=== PATIENT | female | born 1940 | race Caucasian/White ===

== ENCOUNTER 2020-12-25 10:31 | Outpatient (CLI) | payer MEDICARE, MEDICAID, OTHER | END 2020-12-25 10:32 | disposition home or self-care (01) | LOC: CSHCT 10:31 | PROVIDERS: ATTEND Urology | DX: R31.29 Other microscopic hematuria (principal); Q64.8 Other specified congenital malformations of urinary system; N32.9 Bladder disorder, unspecified; N83.8 Other noninflammatory disorders of ovary, fallopian tube and broad ligament | CPT/HCPCS: 74178; 82565 ==

== ENCOUNTER 2021-03-17 07:57 | Inpatient (IN) | payer MEDICARE, MEDICAID ==
[2021-03-17] MEDS ORDERED: Atropine Sulfate 1 mg/10 ml Syringe ONE (08:34)
[2021-03-17 08:56] LABS: #Basophils 0.1 10x3/uL (0.0-0.2); #Eosinphils 0.2 10x3/uL (0.0-0.5); #Monocytes 0.7 10x3/uL (0.0-1.1); #Neutrophils 6.8 10x3/uL (1.5-8.4); %Basophils 0.6 % (0.0-2.0); %Eosinophils 2.4 % (0.0-6.0); %Monocytes 8.3 % (0.0-10.0); %Neutrophils 77.2 % (40.0-75.0); Hemoglobin 10.1 g/dL (12.0-15.5); Mean Corpuscular HGB CONC 31.8 g/dL (32.0-36.0); Mean Corpuscular Hemoglobin 30.5 pg (27.0-33.0); Mean Corpuscular Volume 96.1 fl (81.6-98.3); Mean Platelet Volume 11.9 fl (7.4-10.4); Platelet Count 151 10x3/uL (150-450); RBC Distribution Width 13.8 % (11.5-14.5); Red Blood Cell (RBC) Count 3.31 10x6/uL (3.90-5.03); White Blood Cell (WBC) Count 8.8 10x3/uL (3.5-10.5)
[2021-03-17 09:16] LABS: ALT (SGPT) 23 U/L (8-55); AST (SGOT) 16 U/L (5-34); Albumin 3.9 g/dL (3.4-4.8); Alkaline Phosphatase 67 U/L (40-110); Anion Gap 13 mmol/L (10-20); BUN (Urea Nitrogen) 53 mg/dL (9.8-20.1); Bilirubin, Total 0.5 mg/dL (0.2-1.2); Calc. Creatinine Clearance 0 mL/min (70-130); Calcium 9.1 mg/dL (7.8-10.44); Carbon Dioxide 23 mmol/L (23-31); Chloride 109 mmol/L (98-107); Globulin 2.7 g/dL (2.4-3.5); Glucose 162 mg/dL (83-110); Potassium 5.4 mmol/L (3.5-5.1); Protein, Total 6.6 g/dL (5.8-8.1); Sodium 140 mmol/L (136-145)
[2021-03-17 09:54] LABS: Bilirubin Neg (Negative); Blood, Urine 250 (Negative); Clarity Cloudy (Clear); Glucose, Urine (Dipstick) 100 mg/dL (Negative); Ketone, Urine Negative (Negative); Leukocyte 500 (Negative); Nitrite Negative (Negative); Protein, Urine (Dipstick) 100 mg/dl (Neg-Trace); Specific Gravity, Urine 1.015 (1.002-1.036); Urobilinogen Normal mg/dL (Less than 2)
[2021-03-17 10:06] LABS: RBC/HPF 21-50 HPF (0-3); WBC/HPF Greater Than 50 HPF (0-3)
[2021-03-17 10:08] LABS: Bacteria/HPF 1+ HPF (None Seen); Squamous Epithelial None Seen HPF (0-3)
[2021-03-17 10:09] LABS: Yeast-Hyphae Rare HPF (None Seen)
[2021-03-17] MEDS ORDERED: cefTRIAXone\\ROCEPHIN 1 GM VIAL ONE (10:25)
[2021-03-17] MEDS ORDERED: Nitrofurantoin Macrocrystal 50 MG CAP PO SCH (10:30)
[2021-03-17 11:42] LABS: Potassium 5.1 mmol/L (3.5-5.1)
[2021-03-17 11:56] LABS: Troponin I 0.017 ng/mL (< 0.028)
[2021-03-17] MEDS ORDERED: Senokot S 8.6-50 MG TAB PO PRN (13:02)
[2021-03-17 13:50] VITALS: BMI 30.7
[2021-03-17] MEDS ORDERED: FLU VACC QS2021-22(65YR UP)/PF 240 MCG/0.7 ML SYRINGE IM ONE (14:00)
[2021-03-17 16:48] LABS: Glucose POC Confirmation 183 mg/dl (83-110)
[2021-03-17 20:44] LABS: Glucose POC Confirmation 206 mg/dl (83-110)
[2021-03-17] MEDS ORDERED: glipiZIDE 5 MG TAB PO SCH (21:00)
[2021-03-17] MEDS: Pramipexole Di-HCl 1 MG TAB PO SCH (22:02)
[2021-03-17] MEDS: Famotidine 20 MG TAB PO SCH (22:02)
[2021-03-17] MEDS: Carvedilol 6.25 MG TAB PO SCH (22:02)
[2021-03-18 05:23] LABS: Glucose POC Confirmation 141 mg/dl (83-110)
[2021-03-18 05:27] LABS: Anion Gap 10 mmol/L (10-20); BUN (Urea Nitrogen) 32 mg/dL (9.8-20.1); Calc. Creatinine Clearance 73 mL/min (70-130); Calcium 8.7 mg/dL (7.8-10.44); Carbon Dioxide 24 mmol/L (23-31); Chloride 111 mmol/L (98-107); Glucose 140 mg/dL (83-110); Potassium 4.3 mmol/L (3.5-5.1); Sodium 141 mmol/L (136-145)
[2021-03-18 05:32] LABS: #Eosinphils 0.1 10x3/uL (0.0-0.5); #Monocytes 0.8 10x3/uL (0.0-1.1); #Neutrophils 4.2 10x3/uL (1.5-8.4); %Basophils 0.6 % (0.0-2.0); %Eosinophils 2.1 % (0.0-6.0); %Lymphocytes 21.4 % (18.0-47.0); %Monocytes 11.8 % (0.0-10.0); %Neutrophils 63.8 % (40.0-75.0); Hemoglobin 9.9 g/dL (12.0-15.5); Mean Corpuscular Hemoglobin 30.6 pg (27.0-33.0); Mean Corpuscular Volume 95.4 fl (81.6-98.3); Mean Platelet Volume 11.8 fl (7.4-10.4); Platelet Count 154 10x3/uL (150-450); RBC Distribution Width 13.6 % (11.5-14.5); Red Blood Cell (RBC) Count 3.24 10x6/uL (3.90-5.03); White Blood Cell (WBC) Count 6.5 10x3/uL (3.5-10.5)
[2021-03-18] MEDS ORDERED: Dextrose 5% in Water 1,000 ML IV PRN (07:40)
[2021-03-18] MEDS ORDERED: Dextrose 50% Abboject 50 ML SYRINGE SLOW IVP PRN (07:40)
[2021-03-18] MEDS ORDERED: HumaLOG 300 UNITS/3 ML VIAL SC PRN (07:40)
[2021-03-18] MEDS: Enoxaparin Sodium 40 MG/0.4 ML SYRINGE SC SCH (08:40)
[2021-03-18] MEDS: Aspirin Chewable 81 MG TAB PO SCH (08:40)
[2021-03-18] MEDS: Losartan 25 MG TAB PO SCH (08:41)
[2021-03-18] MEDS: Oxybutynin ER 5 MG TAB PO SCH (08:41)
[2021-03-18] MEDS: PARoxetine 20 MG TAB PO SCH (08:41)
[2021-03-18] MEDS: Doxycycline 100 MG CAP PO SCH (08:41)
[2021-03-18] MEDS: Clopidogrel Bisulfate 75 MG TAB PO SCH (08:41)
[2021-03-18] MEDS: Carvedilol 6.25 MG TAB PO SCH ×2 (08:41→21:09)
[2021-03-18] MEDS: Famotidine 20 MG TAB PO SCH (08:42)
[2021-03-18] MEDS ORDERED: Lantus 1000 UNITS/10 ML VIAL SC SCH ×2 (09:00→15:00)
[2021-03-18 14:08] LABS: SARS-CoV-2 PCR by NAA Not Detected (NotDetected)
[2021-03-18] MEDS: HumaLOG 300 UNITS/3 ML VIAL SC PRN ×3 (15:07→21:19)
[2021-03-18] MEDS: Atorvastatin Calcium 40 MG TAB PO SCH (21:09)
[2021-03-18] MEDS: Pramipexole Di-HCl 1 MG TAB PO SCH (21:10)
[2021-03-18] MEDS: Lantus 1000 UNITS/10 ML VIAL SC SCH (21:13)
[2021-03-19 04:51] LABS: Hemoglobin 9.4 g/dL (12.0-15.5); Mean Corpuscular Hemoglobin 30.5 pg (27.0-33.0); Mean Corpuscular Volume 95.5 fl (81.6-98.3); Mean Platelet Volume 11.5 fl (7.4-10.4); Platelet Count 154 10x3/uL (150-450); RBC Distribution Width 13.6 % (11.5-14.5); Red Blood Cell (RBC) Count 3.08 10x6/uL (3.90-5.03); White Blood Cell (WBC) Count 6.1 10x3/uL (3.5-10.5)
[2021-03-19 05:27] LABS: Anion Gap 10 mmol/L (10-20); BUN (Urea Nitrogen) 29 mg/dL (9.8-20.1); Calc. Creatinine Clearance 57 mL/min (70-130); Calcium 8.6 mg/dL (7.8-10.44); Carbon Dioxide 24 mmol/L (23-31); Chloride 109 mmol/L (98-107); Glucose 120 mg/dL (83-110); Potassium 4.1 mmol/L (3.5-5.1); Sodium 139 mmol/L (136-145)
[2021-03-19 06:14] LABS: MDiff Complete? YES
[2021-03-19 06:20] LABS: Eosinophils 4 % (0-10); Lymphocytes 24 % (21-51); Monocytes 12 % (0-10); Neutrophil 59 % (42-75)
[2021-03-19] MEDS: Doxycycline 100 MG CAP PO SCH (09:43)
[2021-03-19] MEDS: Clopidogrel Bisulfate 75 MG TAB PO SCH (09:46)
[2021-03-19] MEDS: PARoxetine 20 MG TAB PO SCH (09:46)
[2021-03-19] MEDS: Oxybutynin ER 5 MG TAB PO SCH (09:47)
[2021-03-19] MEDS: Carvedilol 6.25 MG TAB PO SCH ×2 (09:47→21:37)
[2021-03-19] MEDS: Lantus 1000 UNITS/10 ML VIAL SC SCH ×2 (09:47→21:38)
[2021-03-19] MEDS: Enoxaparin Sodium 40 MG/0.4 ML SYRINGE SC SCH (09:47)
[2021-03-19] MEDS: Aspirin Chewable 81 MG TAB PO SCH (09:47)
[2021-03-19] MEDS: Losartan 25 MG TAB PO SCH (09:47)
[2021-03-19] MEDS: HumaLOG 300 UNITS/3 ML VIAL SC PRN ×2 (17:04→21:39)
[2021-03-19] MEDS: Pramipexole Di-HCl 1 MG TAB PO SCH (21:37)
[2021-03-19] MEDS: Atorvastatin Calcium 40 MG TAB PO SCH (21:37)
[2021-03-19] MEDS: Nitrofurantoin Monohyd/M-Cryst 100 MG CAP PO SCH (22:24)
[2021-03-20 05:25] LABS: #Eosinphils 0.2 10x3/uL (0.0-0.5); #Monocytes 0.9 10x3/uL (0.0-1.1); %Basophils 0.6 % (0.0-2.0); %Eosinophils 3.2 % (0.0-6.0); %Lymphocytes 20.5 % (18.0-47.0); %Monocytes 13.5 % (0.0-10.0); %Neutrophils 61.9 % (40.0-75.0); Hemoglobin 10.3 g/dL (12.0-15.5); Mean Corpuscular HGB CONC 32.1 g/dL (32.0-36.0); Mean Corpuscular Hemoglobin 30.2 pg (27.0-33.0); Mean Corpuscular Volume 94.1 fl (81.6-98.3); Mean Platelet Volume 11.4 fl (7.4-10.4); Platelet Count 173 10x3/uL (150-450); RBC Distribution Width 13.5 % (11.5-14.5); Red Blood Cell (RBC) Count 3.41 10x6/uL (3.90-5.03); White Blood Cell (WBC) Count 6.5 10x3/uL (3.5-10.5)
[2021-03-20 05:40] LABS: Anion Gap 13 mmol/L (10-20); BUN (Urea Nitrogen) 22 mg/dL (9.8-20.1); Calc. Creatinine Clearance 71 mL/min (70-130); Calcium 8.8 mg/dL (7.8-10.44); Carbon Dioxide 23 mmol/L (23-31); Chloride 110 mmol/L (98-107); Glucose 163 mg/dL (83-110); Sodium 142 mmol/L (136-145)
[2021-03-20 09:09] VITALS: TEMP 98.8
[2021-03-20] MEDS: Clopidogrel Bisulfate 75 MG TAB PO SCH (09:59)
[2021-03-20] MEDS: Aspirin Chewable 81 MG TAB PO SCH (09:59)
[2021-03-20] MEDS: Enoxaparin Sodium 40 MG/0.4 ML SYRINGE SC SCH (09:59)
[2021-03-20] MEDS: Carvedilol 6.25 MG TAB PO SCH (09:59)
[2021-03-20] MEDS: PARoxetine 20 MG TAB PO SCH (09:59)
[2021-03-20] MEDS: Nitrofurantoin Monohyd/M-Cryst 100 MG CAP PO SCH (10:00)
[2021-03-20] MEDS: Losartan 25 MG TAB PO SCH (10:00)
[2021-03-20] MEDS: Oxybutynin ER 5 MG TAB PO SCH (10:08)
[2021-03-20 10:14] VITALS: BP 154/67
[2021-03-20] MEDS: Lantus 1000 UNITS/10 ML VIAL SC SCH (10:14)
== END 2021-03-20 10:46 | disposition home or self-care (01) | DRG 638 ==
LOC: CSHERS 07:57 → CSHTELE 11:26
PROVIDERS: ADMIT Hospitalist; ATTEND Hospitalist
DX: E11.649 Type 2 diabetes mellitus with hypoglycemia without coma (principal); N39.0 Urinary tract infection, site not specified; I10 Essential (primary) hypertension; G25.0 Essential tremor; G47.30 Sleep apnea, unspecified; F32.A Depression, unspecified; E11.42 Type 2 diabetes mellitus with diabetic polyneuropathy; R00.1 Bradycardia, unspecified; Z20.822 Contact with and (suspected) exposure to COVID-19; I25.2 Old myocardial infarction; Z79.82 Long term (current) use of aspirin; Z79.4 Long term (current) use of insulin; Z79.899 Other long term (current) drug therapy; Z95.5 Presence of coronary angioplasty implant and graft; Z98.2 Presence of cerebrospinal fluid drainage device
CPT/HCPCS: 36415; 36416; 70450; 75809; 80048; 80053; 81003; 81015; 83605; 84484; 85025; 93005; J0461; J0696; J1610; J1650; J1815; U0003; U0005

== ENCOUNTER 2021-08-31 18:56 | Inpatient (IN) | payer MEDICARE, MEDICAID ==
[2021-08-31] MEDS ORDERED: Ondansetron PF 4 MG/2 ML Vial ONE (19:26)
[2021-08-31 19:40] LABS: #Basophils 0.1 10x3/uL (0.0-0.2); #Monocytes 0.6 10x3/uL (0.0-1.1); #Neutrophils 10.3 10x3/uL (1.5-8.4); %Basophils 0.4 % (0.0-2.0); %Eosinophils 0.2 % (0.0-6.0); %Lymphocytes 10.2 % (18.0-47.0); %Neutrophils 83.8 % (40.0-75.0); Hemoglobin 12.2 g/dL (12.0-15.5); Mean Corpuscular HGB CONC 33.5 g/dL (32.0-36.0); Mean Corpuscular Hemoglobin 28.9 pg (27.0-33.0); Mean Corpuscular Volume 86.3 fl (81.6-98.3); Mean Platelet Volume 12.4 fl (7.4-10.4); Platelet Count 215 10x3/uL (150-450); RBC Distribution Width 14.3 % (11.5-14.5); Red Blood Cell (RBC) Count 4.22 10x6/uL (3.90-5.03); White Blood Cell (WBC) Count 12.3 10x3/uL (3.5-10.5)
[2021-08-31] MEDS ORDERED: Morphine 4 MG/ML VIAL ONE (19:44)
[2021-08-31 19:54] LABS: ALT (SGPT) 21 U/L (8-55); AST (SGOT) 15 U/L (5-34); Albumin 4.2 g/dL (3.4-4.8); Alkaline Phosphatase 78 U/L (40-110); Anion Gap 15 mmol/L (10-20); BUN (Urea Nitrogen) 34 mg/dL (9.8-20.1); Bilirubin, Total 0.7 mg/dL (0.2-1.2); Calc. Creatinine Clearance 0 mL/min (70-130); Carbon Dioxide 23 mmol/L (23-31); Chloride 104 mmol/L (98-107); Globulin 2.9 g/dL (2.4-3.5); Glucose 177 mg/dL (83-110); Potassium 3.6 mmol/L (3.5-5.1); Protein, Total 7.1 g/dL (5.8-8.1); Sodium 138 mmol/L (136-145)
[2021-09-01] MEDS ORDERED: Ondansetron PF 4 MG/2 ML Vial ONE (00:47)
[2021-09-01] MEDS ORDERED: Aspirin Chewable 81 MG TAB ONE (00:47)
[2021-09-01 01:54] VITALS: BMI 33.1
[2021-09-01] MEDS ORDERED: Nitroglycerin 0.4 MG TAB (25 Tab Bottle) SL PRN (02:52)
[2021-09-01] MEDS ORDERED: Dextrose 50% Abboject 50 ML SYRINGE SLOW IVP PRN (03:11)
[2021-09-01] MEDS ORDERED: Dextrose 5% in Water 1,000 ML IV PRN (03:11)
[2021-09-01] MEDS: Nitroglycerin 2% Ointment 1 INCH/1 GM Packet TOP SCH ×3 (03:30→19:47)
[2021-09-01 03:48] LABS: #Monocytes 0.4 10x3/uL (0.0-1.1); #Neutrophils 12.5 10x3/uL (1.5-8.4); %Basophils 0.1 % (0.0-2.0); %Lymphocytes 6.4 % (18.0-47.0); %Monocytes 2.7 % (0.0-10.0); %Neutrophils 90.4 % (40.0-75.0); Hemoglobin 12.5 g/dL (12.0-15.5); Mean Corpuscular HGB CONC 33.1 g/dL (32.0-36.0); Mean Corpuscular Hemoglobin 28.3 pg (27.0-33.0); Mean Corpuscular Volume 85.7 fl (81.6-98.3); Mean Platelet Volume 12.3 fl (7.4-10.4); Platelet Count 208 10x3/uL (150-450); RBC Distribution Width 14.4 % (11.5-14.5); Red Blood Cell (RBC) Count 4.41 10x6/uL (3.90-5.03); White Blood Cell (WBC) Count 13.8 10x3/uL (3.5-10.5)
[2021-09-01 03:54] LABS: Anion Gap 17 mmol/L (10-20); BUN (Urea Nitrogen) 28 mg/dL (9.8-20.1); Calc. Creatinine Clearance 84 mL/min (70-130); Carbon Dioxide 24 mmol/L (23-31); Cardiac Risk 2.6 (Less than 4.5); Chloride 101 mmol/L (98-107); Cholesterol 108 mg/dl (< 200 Desired); Glucose 203 mg/dL (83-110); HDL Cholesterol 41 mg/dL (>60 Neg Risk); LDL Cholesterol, Calculated 53 mg/dL; Magnesium 2.2 mg/dL (1.6-2.6); Potassium 3.5 mmol/L (3.5-5.1); Sodium 138 mmol/L (136-145); Triglycerides 71 mg/dL (Less than 150)
[2021-09-01 04:02] LABS: Troponin I 0.011 ng/mL (< 0.028)
[2021-09-01 06:57] LABS: Troponin I 0.017 ng/mL (< 0.028)
[2021-09-01] MEDS ORDERED: NIFEdipine XL 60 MG TAB PO SCH (09:15)
[2021-09-01] MEDS: Aspirin Chewable 81 MG TAB PO SCH (09:35)
[2021-09-01] MEDS: Morphine 2 MG/ML VIAL SLOW IVP PRN ×2 (10:12→23:53)
[2021-09-01] MEDS: Enoxaparin Sodium 40 MG/0.4 ML SYRINGE SC SCH (11:09)
[2021-09-01] MEDS: Ondansetron PF 4 MG/2 ML Vial IVP PRN (11:39)
[2021-09-01 11:56] LABS: Hemoglobin A1c 11.3 % (4.0-6.0)
[2021-09-01 22:39] LABS: SARS-CoV-2 PCR by NAA Not Detected (NotDetected)
[2021-09-02] MEDS: Nitroglycerin 2% Ointment 1 INCH/1 GM Packet TOP SCH (05:30)
[2021-09-02] MEDS ORDERED: Losartan 25 MG TAB PO SCH (09:15)
[2021-09-02] MEDS: Enoxaparin Sodium 40 MG/0.4 ML SYRINGE SC SCH (13:12)
[2021-09-02] MEDS: Aspirin Chewable 81 MG TAB PO SCH (13:37)
[2021-09-02] MEDS: NIFEdipine XL 60 MG TAB PO SCH (13:37)
[2021-09-02] MEDS: cefTRIAXone\\ROCEPHIN 1 GM in Sodium Chloride 0.9% 100 ML IVPB SCH (15:45)
[2021-09-02] MEDS: Atorvastatin Calcium 40 MG TAB PO SCH (21:42)
[2021-09-03] MEDS: Acetaminophen 325 MG TAB PO PRN (04:05)
[2021-09-03] MEDS ORDERED: PROPOFOL 20 ML ONE (06:55)
[2021-09-03] MEDS ORDERED: Fentanyl 100 MCG/2 ML VIAL ONE ×2 (06:55→08:50)
[2021-09-03] MEDS ORDERED: EPINEPHrine 1 MG/ML AMP ONE (07:01)
[2021-09-03] MEDS ORDERED: Bupivacaine 0.25% HCL 30 ML VIAL ONE (07:01)
[2021-09-03] MEDS ORDERED: Lidocaine 1% PF 5 ML VIAL ONE (07:50)
[2021-09-03] MEDS ORDERED: Rocuronium Bromide 10 MG/ML (10ML VIAL) ONE (07:50)
[2021-09-03] MEDS ORDERED: Ondansetron PF 4 MG/2 ML Vial ONE (07:51)
[2021-09-03] MEDS ORDERED: ePHEDrine Sulfate 50 MG/10 ML VIAL ONE (07:53)
[2021-09-03] MEDS ORDERED: Ketorolac Tromethamine 30 MG/ML VIAL ONE (08:11)
[2021-09-03] MEDS ORDERED: Glycopyrrolate 0.2 MG/ML 5 ML SYRINGE ONE (08:13)
[2021-09-03] MEDS: Enoxaparin Sodium 40 MG/0.4 ML SYRINGE SC SCH (09:00)
[2021-09-03] MEDS: NIFEdipine XL 60 MG TAB PO SCH (09:15)
[2021-09-03] MEDS: Aspirin Chewable 81 MG TAB PO SCH (09:15)
[2021-09-03] MEDS: Losartan 25 MG TAB PO SCH (09:15)
[2021-09-03] MEDS: Ondansetron PF 4 MG/2 ML Vial IVP PRN (13:25)
[2021-09-03] MEDS: cefTRIAXone\\ROCEPHIN 1 GM in Sodium Chloride 0.9% 100 ML IVPB SCH (16:27)
[2021-09-03] MEDS: Atorvastatin Calcium 40 MG TAB PO SCH (21:58)
[2021-09-03] MEDS: HumaLOG 300 UNITS/3 ML VIAL SC PRN (22:35)
[2021-09-04] MEDS: HumaLOG 300 UNITS/3 ML VIAL SC PRN (06:25)
[2021-09-04] MEDS ORDERED: Clopidogrel Bisulfate 75 MG TAB PO SCH (09:00)
[2021-09-04] MEDS ORDERED: Polyethylene Glycol 3350 17 GM Packet PO SCH (10:00)
[2021-09-04] MEDS: Losartan 25 MG TAB PO SCH (10:16)
[2021-09-04] MEDS: Aspirin Chewable 81 MG TAB PO SCH (10:16)
[2021-09-04] MEDS: Acetaminophen 325 MG TAB PO PRN (10:16)
[2021-09-04] MEDS: Enoxaparin Sodium 40 MG/0.4 ML SYRINGE SC SCH (10:16)
[2021-09-04 13:03] VITALS: BP 109/49; TEMP 97.3
[2021-09-04] MEDS ORDERED: Carvedilol 3.125 MG TAB PO SCH (17:00)
[2021-09-05] MEDS ORDERED: Polyethylene Glycol 3350 17 GM Packet PO SCH (09:00)
== END 2021-09-04 15:40 | disposition home or self-care (01) | DRG 854 ==
LOC: CSHERS 18:56 → OBSVTOIN 09-01 01:24 → CSHTELE 09-01 01:24 → INTOOBSV 09-01 01:24 → UNDOADMOB 09-01 01:24 → OBSVTOIN 09-02 14:40 → CSHTELE 09-02 14:40
PROVIDERS: ADMIT Family Medicine; ATTEND Internal Medicine
PROC: 3E03329 Introduction of Other Anti-infective into Peripheral Vein, Percutaneous Approach (ICD-10-PCS; 2021-09-02)
PROC: 0FT44ZZ Resection of Gallbladder, Percutaneous Endoscopic Approach (ICD-10-PCS; principal; 2021-09-03)
DX: A41.9 Sepsis, unspecified organism (principal); K80.00 Calculus of gallbladder with acute cholecystitis without obstruction; I25.10 Atherosclerotic heart disease of native coronary artery without angina pectoris; R07.9 Chest pain, unspecified; I11.0 Hypertensive heart disease with heart failure; I50.9 Heart failure, unspecified; K82.8 Other specified diseases of gallbladder; E11.51 Type 2 diabetes mellitus with diabetic peripheral angiopathy without gangrene; E78.2 Mixed hyperlipidemia; K21.9 Gastro-esophageal reflux disease without esophagitis; Z20.822 Contact with and (suspected) exposure to COVID-19; Z98.891 History of uterine scar from previous surgery; I25.2 Old myocardial infarction; Z79.02 Long term (current) use of antithrombotics/antiplatelets; Z98.890 Other specified postprocedural states; Z72.89 Other problems related to lifestyle; Z79.82 Long term (current) use of aspirin; Z79.01 Long term (current) use of anticoagulants; Z79.899 Other long term (current) drug therapy; Z95.5 Presence of coronary angioplasty implant and graft; Z82.49 Family history of ischemic heart disease and other diseases of the circulatory system
CPT/HCPCS: 36416; 70450; 71045; 75809; 76705; 78227; 80048; 80053; 80061; 83036; 83690; 83735; 83880; 84484; 85025; 88304; 93005; 93010; 93306; 96374; 96375; 96376; A9537; C1713; G0378; J0171; J0696; J1650; J1815; J1885; J2270; J2405; J2704; J3010; J3490; S0020; U0003; U0005

== ENCOUNTER 2021-09-19 13:44 | Inpatient (IN) | payer MEDICARE, MEDICAID ==
[2021-09-19] MEDS ORDERED: Nitroglycerin 2% Ointment 1 INCH/1 GM Packet ONE (14:22)
[2021-09-19] MEDS ORDERED: Nitroglycerin 0.4 MG TAB 1 EACH ONE ×2 (14:22→15:25)
[2021-09-19] MEDS ORDERED: Furosemide 40 MG/4 ML VIAL ONE (14:22)
[2021-09-19 14:26] LABS: #Basophils 0.1 10x3/uL (0.0-0.2); #Eosinphils 0.2 10x3/uL (0.0-0.5); #Monocytes 0.6 10x3/uL (0.0-1.1); #Neutrophils 8.2 10x3/uL (1.5-8.4); %Basophils 0.5 % (0.0-2.0); %Eosinophils 1.6 % (0.0-6.0); %Lymphocytes 11.9 % (18.0-47.0); %Monocytes 5.6 % (0.0-10.0); Hemoglobin 12.8 g/dL (12.0-15.5); Mean Corpuscular Hemoglobin 28.8 pg (27.0-33.0); Mean Corpuscular Volume 84.7 fl (81.6-98.3); Mean Platelet Volume 12.2 fl (7.4-10.4); Platelet Count 262 10x3/uL (150-450); RBC Distribution Width 14.2 % (11.5-14.5); Red Blood Cell (RBC) Count 4.44 10x6/uL (3.90-5.03); White Blood Cell (WBC) Count 10.3 10x3/uL (3.5-10.5)
[2021-09-19 14:41] LABS: ALT (SGPT) 17 U/L (8-55); AST (SGOT) 17 U/L (5-34); Albumin 4.1 g/dL (3.4-4.8); Alkaline Phosphatase 90 U/L (40-110); Anion Gap 18 mmol/L (10-20); BUN (Urea Nitrogen) 18 mg/dL (9.8-20.1); Bilirubin, Total 0.6 mg/dL (0.2-1.2); Calc. Creatinine Clearance 0 mL/min (70-130); Calcium 9.6 mg/dL (7.8-10.44); Carbon Dioxide 22 mmol/L (23-31); Chloride 106 mmol/L (98-107); Globulin 2.7 g/dL (2.4-3.5); Glucose 143 mg/dL (83-110); Potassium 4.1 mmol/L (3.5-5.1); Protein, Total 6.8 g/dL (5.8-8.1); Sodium 142 mmol/L (136-145)
[2021-09-19] MEDS ORDERED: Iopamidol 370 76% 100 ML VIAL ONE (14:51)
[2021-09-19] MEDS ORDERED: Fentanyl 100 MCG/2 ML VIAL ONE (14:53)
[2021-09-19] MEDS ORDERED: Ondansetron PF 4 MG/2 ML Vial ONE (15:43)
[2021-09-19 16:57] VITALS: BMI 39.9
[2021-09-19] MEDS ORDERED: Ondansetron ODT 4 MG TAB PO PRN (17:50)
[2021-09-19] MEDS ORDERED: Acetaminophen 325 MG TAB PO PRN (17:50)
[2021-09-19] MEDS ORDERED: Ondansetron PF 4 MG/2 ML Vial IVP PRN (17:50)
[2021-09-19] MEDS ORDERED: Nitroglycerin 0.4 MG TAB (25 Tab Bottle) SL PRN (17:53)
[2021-09-19] MEDS ORDERED: Dextrose 5% in Water 1,000 ML IV PRN (17:54)
[2021-09-19] MEDS ORDERED: HumaLOG 300 UNITS/3 ML VIAL SC PRN ×2 (17:54)
[2021-09-19] MEDS ORDERED: Dextrose 50% Abboject 50 ML SYRINGE SLOW IVP PRN (17:54)
[2021-09-19] MEDS ORDERED: hydrALAZINE 20 MG/ML VIAL SLOW IVP PRN ×2 (17:56→19:31)
[2021-09-19] MEDS ORDERED: Pantoprazole 40 MG VIAL IVP SCH (18:00)
[2021-09-19] MEDS ORDERED: Electrolyte Replacement Protocol 1 EACH FS PRN (18:00)
[2021-09-19 18:15] LABS: Troponin I 0.025 ng/mL (< 0.028)
[2021-09-19] MEDS: Promethazine HCl 12.5 MG in Sodium Chloride 0.9% 50 ML IVPB PRN (18:39)
[2021-09-19] MEDS: Morphine 2 MG/ML VIAL SLOW IVP PRN ×2 (19:57→23:16)
[2021-09-19 20:17] LABS: Lactic Acid 1.2 mmol/L (0.5-2.2)
[2021-09-19 20:27] LABS: Troponin I 0.031 ng/mL (< 0.028)
[2021-09-19] MEDS: Nitroglycerin 2% Ointment 1 INCH/1 GM Packet TOP SCH (21:48)
[2021-09-19] MEDS ORDERED: Magnesium 2 GM/50 ML(in water) 2 GM in Premix Bag 1 BAG IVPB SCH (22:00)
[2021-09-19] MEDS: Sucralfate 1 GM TAB PO SCH (23:15)
[2021-09-19] MEDS: Mag-Al 1200 mg/1200 mg/30 ML UDCUP PO SCH (23:15)
[2021-09-20] MEDS: Morphine 2 MG/ML VIAL SLOW IVP PRN (00:13)
[2021-09-20] MEDS: Promethazine HCl 12.5 MG in Sodium Chloride 0.9% 50 ML IVPB PRN ×2 (00:19→12:02)
[2021-09-20] MEDS: Mag-Al 1200 mg/1200 mg/30 ML UDCUP PO SCH (00:34)
[2021-09-20] MEDS: Sucralfate 1 GM TAB PO SCH ×3 (00:34→20:19)
[2021-09-20 01:48] LABS: Bilirubin Neg (Negative); Blood, Urine 10 (Negative); Clarity Clear (Clear); Glucose, Urine (Dipstick) 100 mg/dL (Negative); Ketone, Urine 5 mg/dL (Negative); Leukocyte Negative (Negative); Nitrite Negative (Negative); Protein, Urine (Dipstick) 30 mg/dl (Neg-Trace); Urobilinogen Normal mg/dL (Less than 2)
[2021-09-20 02:03] LABS: Bacteria/HPF Rare-Few HPF (None Seen); RBC/HPF 0-3 HPF (0-3); Squamous Epithelial None Seen HPF (0-3)
[2021-09-20 02:04] LABS: Urine Culture Reflex Yes Yes
[2021-09-20 04:11] LABS: #Monocytes 0.9 10x3/uL (0.0-1.1); #Neutrophils 15.8 10x3/uL (1.5-8.4); %Basophils 0.2 % (0.0-2.0); %Lymphocytes 5.5 % (18.0-47.0); %Neutrophils 88.7 % (40.0-75.0); Hemoglobin 13.7 g/dL (12.0-15.5); Mean Corpuscular HGB CONC 33.2 g/dL (32.0-36.0); Mean Corpuscular Hemoglobin 28.5 pg (27.0-33.0); Mean Corpuscular Volume 85.9 fl (81.6-98.3); Mean Platelet Volume 12.4 fl (7.4-10.4); Platelet Count 294 10x3/uL (150-450); RBC Distribution Width 14.5 % (11.5-14.5); Red Blood Cell (RBC) Count 4.81 10x6/uL (3.90-5.03); White Blood Cell (WBC) Count 17.7 10x3/uL (3.5-10.5)
[2021-09-20 04:26] LABS: Anion Gap 18 mmol/L (10-20); BUN (Urea Nitrogen) 21 mg/dL (9.8-20.1); Calc. Creatinine Clearance 76 mL/min (70-130); Calcium 9.7 mg/dL (7.8-10.44); Carbon Dioxide 28 mmol/L (23-31); Chloride 99 mmol/L (98-107); Glucose 219 mg/dL (83-110); Phosphorus 4.2 mg/dL (2.3-4.7); Potassium 4.3 mmol/L (3.5-5.1); Sodium 141 mmol/L (136-145)
[2021-09-20] MEDS: HumaLOG 300 UNITS/3 ML VIAL SC PRN ×2 (05:57→20:37)
[2021-09-20] MEDS: Nitroglycerin 2% Ointment 1 INCH/1 GM Packet TOP SCH ×3 (05:59→21:39)
[2021-09-20] MEDS ORDERED: Scopolamine 1.5 mg/72 hour Patch TD SCH (09:00)
[2021-09-20] MEDS ORDERED: Furosemide 40 MG TAB PO SCH (09:00)
[2021-09-20] MEDS ORDERED: Losartan 25 MG TAB PO SCH (09:00)
[2021-09-20] MEDS ORDERED: PARoxetine 20 MG TAB PO SCH (09:00)
[2021-09-20] MEDS ORDERED: Pantoprazole 40 MG VIAL IVP SCH (09:00)
[2021-09-20] MEDS: Carvedilol 6.25 MG TAB PO SCH ×3 (09:06→19:07)
[2021-09-20] MEDS: Atorvastatin Calcium 40 MG TAB PO SCH (09:06)
[2021-09-20] MEDS: Clopidogrel Bisulfate 75 MG TAB PO SCH (09:06)
[2021-09-20] MEDS: Aspirin Chewable 81 MG TAB PO SCH (09:06)
[2021-09-20] MEDS: Pantoprazole 40 MG VIAL IVP SCH ×2 (09:07→20:19)
[2021-09-20] MEDS: Dextrose 5 % And 0.9 % NaCl 1,000 ML IV SCH (14:19)
[2021-09-20 15:22] LABS: SARS-CoV-2 PCR by NAA Not Detected (NotDetected)
[2021-09-20] MEDS: Metoclopramide HCl 10 MG/2 ML VIAL IVP SCH ×2 (17:56→20:18)
[2021-09-20] MEDS ORDERED: Pramipexole Di-HCl 0.25 MG TAB PO SCH (20:45)
[2021-09-21] MEDS: Dextrose 5 % And 0.9 % NaCl 1,000 ML IV SCH ×2 (04:03→18:07)
[2021-09-21 05:25] LABS: #Basophils 0.1 10x3/uL (0.0-0.2); #Eosinphils 0.2 10x3/uL (0.0-0.5); #Monocytes 0.9 10x3/uL (0.0-1.1); #Neutrophils 6.5 10x3/uL (1.5-8.4); %Basophils 0.5 % (0.0-2.0); %Eosinophils 1.6 % (0.0-6.0); %Lymphocytes 20.7 % (18.0-47.0); %Monocytes 9.3 % (0.0-10.0); %Neutrophils 67.7 % (40.0-75.0); Hemoglobin 11.5 g/dL (12.0-15.5); Mean Corpuscular HGB CONC 33.5 g/dL (32.0-36.0); Mean Corpuscular Hemoglobin 29.3 pg (27.0-33.0); Mean Corpuscular Volume 87.5 fl (81.6-98.3); Mean Platelet Volume 12.2 fl (7.4-10.4); Platelet Count 250 10x3/uL (150-450); Red Blood Cell (RBC) Count 3.92 10x6/uL (3.90-5.03); White Blood Cell (WBC) Count 9.5 10x3/uL (3.5-10.5)
[2021-09-21 05:27] LABS: Anion Gap 16 mmol/L (10-20); BUN (Urea Nitrogen) 36 mg/dL (9.8-20.1); Calc. Creatinine Clearance 32 mL/min (70-130); Calcium 8.5 mg/dL (7.8-10.44); Carbon Dioxide 27 mmol/L (23-31); Chloride 98 mmol/L (98-107); Glucose 127 mg/dL (83-110); Magnesium 2.7 mg/dL (1.6-2.6); Potassium 3.7 mmol/L (3.5-5.1); Sodium 137 mmol/L (136-145)
[2021-09-21] MEDS: Metoclopramide HCl 10 MG/2 ML VIAL IVP SCH ×4 (06:03→20:58)
[2021-09-21] MEDS: Carvedilol 6.25 MG TAB PO SCH (06:16)
[2021-09-21] MEDS: Nitroglycerin 2% Ointment 1 INCH/1 GM Packet TOP SCH ×2 (06:17→11:41)
[2021-09-21 08:18] LABS: Hemoglobin 11.9 g/dL (12.0-15.5); Mean Corpuscular HGB CONC 33.3 g/dL (32.0-36.0); Mean Corpuscular Hemoglobin 29.7 pg (27.0-33.0); Mean Platelet Volume 12.4 fl (7.4-10.4); Platelet Count 266 10x3/uL (150-450); RBC Distribution Width 14.6 % (11.5-14.5); Red Blood Cell (RBC) Count 4.01 10x6/uL (3.90-5.03); White Blood Cell (WBC) Count 8.9 10x3/uL (3.5-10.5)
[2021-09-21 08:28] LABS: INR-International Normal Ratio 0.9; PTT 25.7 sec (22.0-33.0); Prothrombin Time 10.3 sec (9.5-12.1)
[2021-09-21 08:37] LABS: ALT (SGPT) 14 U/L (8-55); AST (SGOT) 13 U/L (5-34); Albumin 3.5 g/dL (3.4-4.8); Alkaline Phosphatase 69 U/L (40-110); Anion Gap 15 mmol/L (10-20); BUN (Urea Nitrogen) 36 mg/dL (9.8-20.1); Bilirubin, Total 0.5 mg/dL (0.2-1.2); Calc. Creatinine Clearance 38 mL/min (70-130); Calcium 8.6 mg/dL (7.8-10.44); Carbon Dioxide 27 mmol/L (23-31); Chloride 98 mmol/L (98-107); Globulin 2.7 g/dL (2.4-3.5); Glucose 270 mg/dL (83-110); Magnesium 2.6 mg/dL (1.6-2.6); Potassium 3.7 mmol/L (3.5-5.1); Protein, Total 6.2 g/dL (5.8-8.1); Sodium 136 mmol/L (136-145)
[2021-09-21] MEDS: Sucralfate 1 GM TAB PO SCH ×2 (09:59→20:58)
[2021-09-21] MEDS: Atorvastatin Calcium 40 MG TAB PO SCH (09:59)
[2021-09-21] MEDS: Clopidogrel Bisulfate 75 MG TAB PO SCH (09:59)
[2021-09-21] MEDS: Pantoprazole 40 MG VIAL IVP SCH ×2 (09:59→20:58)
[2021-09-21] MEDS: Aspirin Chewable 81 MG TAB PO SCH (09:59)
[2021-09-21 10:23] LABS: Bilirubin Neg (Negative); Blood, Urine 25 (Negative); Clarity Clear (Clear); Glucose, Urine (Dipstick) 50 mg/dL (Negative); Ketone, Urine Negative (Negative); Leukocyte 100 (Negative); Nitrite Negative (Negative); Protein, Urine (Dipstick) 30 mg/dl (Neg-Trace); Specific Gravity, Urine 1.015 (1.002-1.036); Urobilinogen Normal mg/dL (Less than 2)
[2021-09-21 10:30] LABS: Urine Culture Reflex No No
[2021-09-21 10:32] LABS: Bacteria/HPF Rare-Few HPF (None Seen); RBC/HPF 0-3 HPF (0-3)
[2021-09-21 10:41] LABS: Creatinine, Urine 95.81 mg/dL (47-110)
[2021-09-21 12:06] LABS: Hemoglobin A1c 9.9 % (4.0-6.0)
[2021-09-21] MEDS ORDERED: PROPOFOL 40 ML ONE (16:04)
[2021-09-21] MEDS ORDERED: Lidocaine 1% PF 5 ML VIAL ONE (16:10)
[2021-09-21] MEDS ORDERED: PHENYLEPHRINE-NS 100 MCG/ML 10 ML SYRINGE ONE (16:31)
[2021-09-21] MEDS: Sodium Chloride 0.9% 1,000 ML IV SCH (20:58)
[2021-09-21] MEDS: HumaLOG 300 UNITS/3 ML VIAL SC PRN (20:59)
[2021-09-22 04:50] LABS: #Basophils 0.1 10x3/uL (0.0-0.2); #Eosinphils 0.3 10x3/uL (0.0-0.5); #Monocytes 0.8 10x3/uL (0.0-1.1); #Neutrophils 5.4 10x3/uL (1.5-8.4); %Basophils 0.6 % (0.0-2.0); %Eosinophils 3.9 % (0.0-6.0); %Lymphocytes 18.5 % (18.0-47.0); %Monocytes 9.7 % (0.0-10.0); %Neutrophils 66.9 % (40.0-75.0); Mean Corpuscular HGB CONC 32.8 g/dL (32.0-36.0); Mean Corpuscular Hemoglobin 28.7 pg (27.0-33.0); Mean Corpuscular Volume 87.6 fl (81.6-98.3); Mean Platelet Volume 12.3 fl (7.4-10.4); Platelet Count 254 10x3/uL (150-450); RBC Distribution Width 14.7 % (11.5-14.5); Red Blood Cell (RBC) Count 4.18 10x6/uL (3.90-5.03)
[2021-09-22 05:14] LABS: ALT (SGPT) 16 U/L (8-55); AST (SGOT) 15 U/L (5-34); Albumin 3.4 g/dL (3.4-4.8); Alkaline Phosphatase 72 U/L (40-110); Anion Gap 11 mmol/L (10-20); BUN (Urea Nitrogen) 24 mg/dL (9.8-20.1); Bilirubin, Direct 0.2 mg/dL (0.1-0.3); Bilirubin, Total 0.5 mg/dL (0.2-1.2); Calc. Creatinine Clearance 84 mL/min (70-130); Calcium 8.7 mg/dL (7.8-10.44); Carbon Dioxide 27 mmol/L (23-31); Chloride 107 mmol/L (98-107); Cholesterol 108 mg/dl (< 200 Desired); Glucose 224 mg/dL (83-110); HDL Cholesterol 27 mg/dL (>60 Neg Risk); LDL Cholesterol, Calculated 33 mg/dL; Magnesium 2.4 mg/dL (1.6-2.6); Potassium 4.3 mmol/L (3.5-5.1); Protein, Total 6.3 g/dL (5.8-8.1); Sodium 141 mmol/L (136-145); Triglycerides 239 mg/dL (Less than 150)
[2021-09-22] MEDS: Metoclopramide HCl 10 MG/2 ML VIAL IVP SCH ×3 (06:25→17:20)
[2021-09-22] MEDS: HumaLOG 300 UNITS/3 ML VIAL SC PRN (06:28)
[2021-09-22] MEDS: Sucralfate 1 GM TAB PO SCH (08:47)
[2021-09-22] MEDS: Pantoprazole 40 MG VIAL IVP SCH (08:47)
[2021-09-22] MEDS: Atorvastatin Calcium 40 MG TAB PO SCH (08:47)
[2021-09-22] MEDS: Clopidogrel Bisulfate 75 MG TAB PO SCH (08:49)
[2021-09-22] MEDS: Aspirin Chewable 81 MG TAB PO SCH (08:49)
[2021-09-22] MEDS: Sodium Chloride 0.9% 1,000 ML IV SCH (08:50)
[2021-09-22 18:12] VITALS: BP 150/63; TEMP 97.5
[2021-09-22] MEDS ORDERED: Lantus 1000 UNITS/10 ML VIAL SC SCH (21:00)
[2021-09-23] MEDS ORDERED: Lantus 1000 UNITS/10 ML VIAL SC SCH (09:00)
== END 2021-09-22 20:10 | disposition home or self-care (01) | DRG 392 ==
LOC: CSHERS 13:44 → CSHTELE 15:18 → OBSVTOIN 09-21 18:06
PROVIDERS: ADMIT Internal Medicine; ATTEND Family Medicine
PROC: 0D748ZZ Dilation of Esophagogastric Junction, Via Natural or Artificial Opening Endoscopic (ICD-10-PCS; principal; 2021-09-21)
PROC: 0DB38ZX Excision of Lower Esophagus, Via Natural or Artificial Opening Endoscopic, Diagnostic (ICD-10-PCS; 2021-09-21)
PROC: 0DB68ZX Excision of Stomach, Via Natural or Artificial Opening Endoscopic, Diagnostic (ICD-10-PCS; 2021-09-21)
PROC: 0DB18ZX Excision of Upper Esophagus, Via Natural or Artificial Opening Endoscopic, Diagnostic (ICD-10-PCS; 2021-09-21)
DX: K22.2 Esophageal obstruction (principal); K22.10 Ulcer of esophagus without bleeding; N17.9 Acute kidney failure, unspecified; K29.70 Gastritis, unspecified, without bleeding; I25.10 Atherosclerotic heart disease of native coronary artery without angina pectoris; T50.8X5A Adverse effect of diagnostic agents, initial encounter; E86.0 Dehydration; I10 Essential (primary) hypertension; E11.65 Type 2 diabetes mellitus with hyperglycemia; K21.00 Gastro-esophageal reflux disease with esophagitis, without bleeding; E78.2 Mixed hyperlipidemia; R07.89 Other chest pain; R13.19 Other dysphagia; Z20.822 Contact with and (suspected) exposure to COVID-19; Z95.5 Presence of coronary angioplasty implant and graft; I25.2 Old myocardial infarction; Z79.01 Long term (current) use of anticoagulants; Z79.82 Long term (current) use of aspirin; Z79.899 Other long term (current) drug therapy; Z79.02 Long term (current) use of antithrombotics/antiplatelets; Z90.49 Acquired absence of other specified parts of digestive tract; Z82.49 Family history of ischemic heart disease and other diseases of the circulatory system; Z79.4 Long term (current) use of insulin; Z91.11 Patient's noncompliance with dietary regimen
CPT/HCPCS: 36415; 36416; 71045; 71275; 74174; 76770; 80048; 80053; 80061; 80076; 81001; 82570; 83036; 83605; 83735; 83880; 83930; 83935; 84100; 84300; 84443; 84484; 84540; 85025; 85610; 85730; 86850; 86900; 86901; 87086; 93005; 93010; 94760; 96374; 96375; 96376; C9113; G0378; J0360; J1815; J1940; J2270; J2405; J2550; J2704; J2765; J3010; J3475; J7042; J7050; Q0162; U0003; U0005

== ENCOUNTER 2021-11-04 11:06 | Outpatient (CLI) | payer OTHER, MEDICAID ==
[2021-11-04] MEDS ORDERED: Magnevist 469MG/ML 20 ML VIAL ONE (15:19)
== END 2021-11-04 11:07 | disposition home or self-care (01) ==
LOC: CSHMRI 11:06
PROVIDERS: ATTEND Family Medicine
DX: R90.89 Other abnormal findings on diagnostic imaging of central nervous system (principal); Z98.2 Presence of cerebrospinal fluid drainage device; G93.9 Disorder of brain, unspecified
CPT/HCPCS: 70250; 70553; 82565; A9579

== ENCOUNTER 2021-11-07 15:44 | Emergency (ER) | payer OTHER, MEDICAID ==
[2021-11-07 16:17] LABS: #Basophils 0.1 10x3/uL (0.0-0.2); #Eosinphils 0.2 10x3/uL (0.0-0.5); #Monocytes 0.8 10x3/uL (0.0-1.1); #Neutrophils 6.4 10x3/uL (1.5-8.4); %Basophils 0.5 % (0.0-2.0); %Eosinophils 2.2 % (0.0-6.0); %Lymphocytes 20.3 % (18.0-47.0); %Monocytes 8.7 % (0.0-10.0); Hemoglobin 12.1 g/dL (12.0-15.5); Mean Corpuscular HGB CONC 33.2 g/dL (32.0-36.0); Mean Corpuscular Hemoglobin 29.4 pg (27.0-33.0); Mean Corpuscular Volume 88.6 fl (81.6-98.3); Mean Platelet Volume 12.8 fl (7.4-10.4); Platelet Count 187 10x3/uL (150-450); RBC Distribution Width 14.6 % (11.5-14.5); Red Blood Cell (RBC) Count 4.11 10x6/uL (3.90-5.03); White Blood Cell (WBC) Count 9.4 10x3/uL (3.5-10.5)
[2021-11-07 16:20] LABS: INR-International Normal Ratio 0.9; PTT 23.1 sec (22.0-33.0)
[2021-11-07 16:23] LABS: ALT (SGPT) 18 U/L (8-55); AST (SGOT) 15 U/L (5-34); Alkaline Phosphatase 91 U/L (40-110); Anion Gap 16 mmol/L (10-20); BUN (Urea Nitrogen) 29 mg/dL (9.8-20.1); Bilirubin, Total 0.3 mg/dL (0.2-1.2); Calc. Creatinine Clearance 0 mL/min (70-130); Calcium 9.8 mg/dL (7.8-10.44); Carbon Dioxide 29 mmol/L (23-31); Chloride 96 mmol/L (98-107); Estimated GFR 51; Globulin 2.5 g/dL (2.4-3.5); Glucose 262 mg/dL (83-110); Potassium 4.5 mmol/L (3.5-5.1); Protein, Total 6.5 g/dL (5.8-8.1); Sodium 136 mmol/L (136-145)
[2021-11-07] MEDS ORDERED: Bacitracin 1 PK ONE (17:36)
[2021-11-07] MEDS ORDERED: Boostrix 0.5 ML (Tdap) VIAL ONE (17:36)
[2021-11-07] MEDS ORDERED: Lidocaine 1% w/Epinephrine 1:100K 20 ML VIAL ONE (17:36)
== END 2021-11-07 20:06 | disposition home or self-care (01) ==
LOC: CSHERS 15:44
DX: S01.81XA Laceration without foreign body of other part of head, initial encounter (principal); Z23 Encounter for immunization; E11.9 Type 2 diabetes mellitus without complications; I11.0 Hypertensive heart disease with heart failure; I50.9 Heart failure, unspecified; E78.5 Hyperlipidemia, unspecified; Z79.01 Long term (current) use of anticoagulants; W01.198A Fall on same level from slipping, tripping and stumbling with subsequent striking against other object, initial encounter
CPT/HCPCS: 12013; 70450; 70486; 72125; 80053; 85025; 85610; 85730; 90471; 90715; 93005

== ENCOUNTER 2022-02-05 16:52 | Emergency (ER) | payer OTHER ==
[2022-02-05 18:16] LABS: ALT (SGPT) 16 U/L (8-55); AST (SGOT) 15 U/L (5-34); Albumin 3.9 g/dL (3.4-4.8); Alkaline Phosphatase 97 U/L (40-110); Anion Gap 13 mmol/L (10-20); BUN (Urea Nitrogen) 37 mg/dL (9.8-20.1); Bilirubin, Total 0.3 mg/dL (0.2-1.2); Calc. Creatinine Clearance 0 mL/min (70-130); Calcium 9.2 mg/dL (7.8-10.44); Carbon Dioxide 23 mmol/L (23-31); Chloride 107 mmol/L (98-107); Estimated GFR 71; Glucose 285 mg/dL (83-110); Protein, Total 6.9 g/dL (5.8-8.1); Sodium 139 mmol/L (136-145)
[2022-02-05 18:37] LABS: #Eosinphils 0.2 10x3/uL (0.0-0.5); #Monocytes 0.7 10x3/uL (0.0-1.1); #Neutrophils 4.8 10x3/uL (1.5-8.4); %Basophils 0.4 % (0.0-2.0); %Eosinophils 2.1 % (0.0-6.0); %Lymphocytes 18.8 % (18.0-47.0); %Monocytes 9.8 % (0.0-10.0); %Neutrophils 68.5 % (40.0-75.0); Hemoglobin 12.2 g/dL (12.0-15.5); Mean Corpuscular HGB CONC 32.9 g/dL (32.0-36.0); Mean Corpuscular Volume 91.2 fl (81.6-98.3); Mean Platelet Volume 12.4 fl (7.4-10.4); Platelet Count 207 10x3/uL (150-450); RBC Distribution Width 13.8 % (11.5-14.5); Red Blood Cell (RBC) Count 4.07 10x6/uL (3.90-5.03); White Blood Cell (WBC) Count 7.1 10x3/uL (3.5-10.5)
[2022-02-05 21:03] LABS: Bilirubin Neg (Negative); Blood, Urine 150 (Negative); Glucose, Urine (Dipstick) >=1000 mg/dL (Negative); Ketone, Urine Negative (Negative); Leukocyte 500 (Negative); Nitrite Negative (Negative); Protein, Urine (Dipstick) 30 mg/dl (Neg-Trace); Specific Gravity, Urine 1.015 (1.005-1.030); Urobilinogen Normal mg/dL (Less than 2)
[2022-02-05 21:14] LABS: Bacteria/HPF 4+ HPF (None Seen); Squamous Epithelial 0-3 HPF (0-3); WBC/HPF Greater than 50 HPF (0-3)
[2022-02-05 21:15] LABS: Mucous/LPF 2+ LPF (<2+)
== END 2022-02-05 21:42 | disposition home or self-care (01) ==
LOC: CSHERS 16:52
DX: N39.0 Urinary tract infection, site not specified (principal); R41.0 Disorientation, unspecified; I11.0 Hypertensive heart disease with heart failure; I50.9 Heart failure, unspecified; E78.5 Hyperlipidemia, unspecified; E11.9 Type 2 diabetes mellitus without complications
CPT/HCPCS: 70450; 80053; 81003; 81015; 83605; 85025; 87077; 87086; 87186; 93005

== ENCOUNTER 2022-02-10 17:13 | Emergency (ER) | payer OTHER ==
[2022-02-10] MEDS ORDERED: Lorazepam 2 MG/ML VIAL ONE ×2 (17:34→19:02)
[2022-02-10] MEDS ORDERED: cefTRIAXone\\ROCEPHIN 2 GM VIAL ONE (17:46)
[2022-02-10 17:50] LABS: #Basophils 0.1 10x3/uL (0.0-0.2); #Eosinphils 0.1 10x3/uL (0.0-0.5); #Monocytes 0.7 10x3/uL (0.0-1.1); #Neutrophils 5.6 10x3/uL (1.5-8.4); %Basophils 0.8 % (0.0-2.0); %Eosinophils 1.2 % (0.0-6.0); %Lymphocytes 14.3 % (18.0-47.0); %Monocytes 9.7 % (0.0-10.0); %Neutrophils 73.6 % (40.0-75.0); Hemoglobin 11.9 g/dL (12.0-15.5); Mean Corpuscular HGB CONC 33.5 g/dL (32.0-36.0); Mean Corpuscular Hemoglobin 29.9 pg (27.0-33.0); Mean Corpuscular Volume 89.2 fl (81.6-98.3); Mean Platelet Volume 12.6 fl (7.4-10.4); Platelet Count 208 10x3/uL (150-450); RBC Distribution Width 13.5 % (11.5-14.5); Red Blood Cell (RBC) Count 3.98 10x6/uL (3.90-5.03); White Blood Cell (WBC) Count 7.6 10x3/uL (3.5-10.5)
[2022-02-10 18:02] LABS: ALT (SGPT) 23 U/L (8-55); AST (SGOT) 17 U/L (5-34); Albumin 3.8 g/dL (3.4-4.8); Alkaline Phosphatase 94 U/L (40-110); Anion Gap 15 mmol/L (10-20); BUN (Urea Nitrogen) 27 mg/dL (9.8-20.1); Bilirubin, Total 0.4 mg/dL (0.2-1.2); Calc. Creatinine Clearance 0 mL/min (70-130); Calcium 9.2 mg/dL (7.8-10.44); Carbon Dioxide 24 mmol/L (23-31); Chloride 103 mmol/L (98-107); Estimated GFR 76; Globulin 2.8 g/dL (2.4-3.5); Glucose 110 mg/dL (83-110); Potassium 4.2 mmol/L (3.5-5.1); Protein, Total 6.6 g/dL (5.8-8.1); Sodium 138 mmol/L (136-145)
[2022-02-10] MEDS ORDERED: diphenhydrAMINE 50 MG/ML VIAL ONE (19:23)
[2022-02-10] MEDS ORDERED: Haloperidol Lactate 5 MG/ML VIAL ONE (19:23)
[2022-02-10] MEDS ORDERED: Tranexamic Acid 1,000 MG/10 ML VIAL ONE (19:37)
[2022-02-10] MEDS ORDERED: levETIRAcetam 500 MG/5 ML VIAL ONE (19:38)
[2022-02-10] MEDS ORDERED: Fentanyl 100 MCG/2 ML VIAL ONE (19:41)
[2022-02-10] MEDS ORDERED: Propofol 1,000 MG/100 ML VIAL IV ONE (20:01)
[2022-02-10 21:51] LABS: Bilirubin Neg (Negative); Blood, Urine 150 (Negative); Clarity Clear (Clear); Glucose, Urine (Dipstick) Normal (Negative); Ketone, Urine Negative (Negative); Leukocyte Negative (Negative); Nitrite Negative (Negative); Protein, Urine (Dipstick) 30 mg/dl (Neg-Trace); Specific Gravity, Urine 1.015 (1.005-1.030); Urobilinogen Normal mg/dL (Less than 2)
[2022-02-10 21:54] LABS: Bacteria/HPF None Seen HPF (None Seen)
[2022-02-10 22:34] LABS: SARS-CoV-2 NAA Rapid Test Not Detected (NotDetected)
[2022-02-11 16:19] LABS: ALV-art Gradient 131.475 mmHg (0-20); Actual Bicarbonate (HCO3a) 25.6 mEq/L (22-28); Base Excess (BEa) 2.1 mEq/L (-2.0 to +3.0); CO2 Tension 36.1 mmHg (35.0-45.0); Calcium, Ionized (arterial) 1.14 mmol/L (1.12-1.30); Carboxyhemoglobin (COHb) 0.5 gm% (0.0-3.0); Critical Notified By: CP.PH; Hemoglobin (Hb) 12.2 g/dL (12.0-16.0); O2 Tension (PaO2), arterial 179.9 mmHg (> 70.0); Potassium - ABG Lab 3.6 mmol/L (3.70-5.30); Puncture Site LRA; RapidComm Collect By CP.PH; pH, Arterial 7.47 (7.35-7.45)
== END 2022-02-10 21:47 | disposition short-term general hospital (02) ==
LOC: CSHERS 17:13
DX: S06.5XAA Traumatic subdural hemorrhage with loss of consciousness status unknown, initial encounter (principal); N39.0 Urinary tract infection, site not specified; I11.0 Hypertensive heart disease with heart failure; I50.9 Heart failure, unspecified; E11.9 Type 2 diabetes mellitus without complications; E78.5 Hyperlipidemia, unspecified; X58.XXXA Exposure to other specified factors, initial encounter
CPT/HCPCS: 31500; 36415; 36600; 70450; 71045; 80053; 81003; 81015; 82805; 83605; 83880; 84484; 85025; 87040; 93005; 94002; 94760; 96374; 96375; 96376; J0696; J1200; J1630; J1953; J2060; J2704; J3010; U0002

== ENCOUNTER 2022-04-28 13:30 | Emergency (ER) | payer OTHER ==
[2022-04-28 14:56] LABS: SARS-CoV-2 NAA Rapid Test DETECTED (NotDetected)
[2022-04-28] MEDS ORDERED: Dexamethasone 4 MG TAB ONE (15:50)
== END 2022-04-28 17:26 | disposition home or self-care (01) ==
LOC: CSHERS 13:30
DX: U07.1 COVID-19 (principal); E11.9 Type 2 diabetes mellitus without complications; I11.0 Hypertensive heart disease with heart failure; I50.9 Heart failure, unspecified; E78.5 Hyperlipidemia, unspecified
CPT/HCPCS: 0240U; 99283; J8540

== ENCOUNTER 2022-05-01 07:19 | Inpatient (IN) | payer OTHER, MEDICAID ==
[2022-05-01 08:00] LABS: #Eosinphils 0.4 10x3/uL (0.0-0.5); #Monocytes 0.9 10x3/uL (0.0-1.1); #Neutrophils 6.8 10x3/uL (1.5-8.4); %Basophils 0.4 % (0.0-2.0); %Eosinophils 4.3 % (0.0-6.0); %Lymphocytes 16.4 % (18.0-47.0); %Monocytes 9.5 % (0.0-10.0); %Neutrophils 69.1 % (40.0-75.0); Hemoglobin 13.6 g/dL (12.0-15.5); Mean Corpuscular HGB CONC 34.3 g/dL (32.0-36.0); Mean Corpuscular Hemoglobin 30.4 pg (27.0-33.0); Mean Corpuscular Volume 88.6 fl (81.6-98.3); Mean Platelet Volume 12.4 fl (7.4-10.4); Platelet Count 184 10x3/uL (150-450); RBC Distribution Width 13.5 % (11.5-14.5); Red Blood Cell (RBC) Count 4.47 10x6/uL (3.90-5.03); White Blood Cell (WBC) Count 9.8 10x3/uL (3.5-10.5)
[2022-05-01 08:11] LABS: ALT (SGPT) 17 U/L (8-55); AST (SGOT) 17 U/L (5-34); Albumin 4.1 g/dL (3.4-4.8); Alkaline Phosphatase 88 U/L (40-110); Anion Gap 16 mmol/L (10-20); BUN (Urea Nitrogen) 34 mg/dL (9.8-20.1); Bilirubin, Total 0.4 mg/dL (0.2-1.2); Calc. Creatinine Clearance 0 mL/min (70-130); Calcium 9.5 mg/dL (7.8-10.44); Carbon Dioxide 31 mmol/L (23-31); Chloride 98 mmol/L (98-107); Estimated GFR 56; Globulin 2.9 g/dL (2.4-3.5); Glucose 253 mg/dL (83-110); Lipase 6 U/L (8-78); Potassium 4.7 mmol/L (3.5-5.1); Sodium 140 mmol/L (136-145)
[2022-05-01 08:34] LABS: CKMB 2.3 ng/mL (0-6.6)
[2022-05-01] MEDS ORDERED: Aspirin Chewable 81 MG TAB ONE (10:10)
[2022-05-01] MEDS ORDERED: Nitroglycerin 0.4 MG TAB (25 Tab Bottle) SL PRN (11:17)
[2022-05-01] MEDS ORDERED: Dextrose 5% in Water 1,000 ML IV PRN (11:23)
[2022-05-01] MEDS ORDERED: Dextrose 50% Abboject 50 ML SYRINGE SLOW IVP PRN (11:23)
[2022-05-01] MEDS ORDERED: Ondansetron ODT 4 MG TAB PO PRN (11:23)
[2022-05-01] MEDS ORDERED: Senokot S 8.6-50 MG TAB PO PRN (11:23)
[2022-05-01] MEDS ORDERED: Ondansetron PF 4 MG/2 ML Vial IVP PRN (11:23)
[2022-05-01 11:41] LABS: Troponin I 0.027 ng/mL (< 0.028)
[2022-05-01 12:10] LABS: Bilirubin Neg (Negative); Blood, Urine 10 (Negative); Clarity Clear (Clear); Glucose, Urine (Dipstick) >=1000 mg/dL (Negative); Ketone, Urine Negative (Negative); Leukocyte Negative (Negative); Nitrite Negative (Negative); Protein, Urine (Dipstick) 30 mg/dl (Neg-Trace); Urobilinogen Normal mg/dL (Less than 2)
[2022-05-01] MEDS: HumaLOG 300 UNITS/3 ML VIAL SC PRN ×2 (12:15→17:37)
[2022-05-01] MEDS ORDERED: Benzonatate 100 MG CAP PO PRN (12:22)
[2022-05-01 12:35] LABS: Bacteria/HPF Rare-Few HPF (None Seen); RBC/HPF 0-3 HPF (0-3); Squamous Epithelial 0-3 HPF (0-3); WBC/HPF 0-3 HPF (0-3)
[2022-05-01] MEDS ORDERED: Iopamidol 300 61% 100 ML VIAL FS ONE (12:47)
[2022-05-01 12:57] LABS: Magnesium 2.2 mg/dL (1.6-2.6)
[2022-05-01 14:46] LABS: Troponin I 0.042 ng/mL (< 0.028)
[2022-05-01 18:10] VITALS: BMI 31.0
[2022-05-01] MEDS: Pramipexole Di-HCl 1 MG TAB PO SCH (20:33)
[2022-05-01] MEDS: Carvedilol 6.25 MG TAB PO SCH (20:33)
[2022-05-01] MEDS: Loperamide HCl 2 MG CAP PO PRN (20:33)
[2022-05-01] MEDS: levETIRAcetam 500 MG TAB PO SCH (20:33)
[2022-05-01] MEDS: Lantus 1000 UNITS/10 ML VIAL SC SCH (20:34)
[2022-05-01 21:39] LABS: #Eosinphils 1.1 10x3/uL (0.0-0.5); #Monocytes 0.9 10x3/uL (0.0-1.1); #Neutrophils 7.6 10x3/uL (1.5-8.4); %Basophils 0.2 % (0.0-2.0); %Eosinophils 9.8 % (0.0-6.0); %Lymphocytes 14.4 % (18.0-47.0); %Monocytes 8.1 % (0.0-10.0); %Neutrophils 67.1 % (40.0-75.0); Hemoglobin 13.1 g/dL (12.0-15.5); Mean Corpuscular HGB CONC 33.8 g/dL (32.0-36.0); Mean Platelet Volume 11.9 fl (7.4-10.4); Platelet Count 176 10x3/uL (150-450); RBC Distribution Width 13.6 % (11.5-14.5); Red Blood Cell (RBC) Count 4.36 10x6/uL (3.90-5.03); White Blood Cell (WBC) Count 11.3 10x3/uL (3.5-10.5)
[2022-05-02 00:33] LABS: Hemoglobin 12.7 g/dL (12.0-15.5)
[2022-05-02 05:13] LABS: #Eosinphils 1.2 10x3/uL (0.0-0.5); #Monocytes 0.8 10x3/uL (0.0-1.1); #Neutrophils 6.1 10x3/uL (1.5-8.4); %Basophils 0.4 % (0.0-2.0); %Eosinophils 12.7 % (0.0-6.0); %Lymphocytes 14.5 % (18.0-47.0); %Monocytes 7.8 % (0.0-10.0); %Neutrophils 64.3 % (40.0-75.0); Hemoglobin 12.9 g/dL (12.0-15.5); Mean Corpuscular HGB CONC 33.8 g/dL (32.0-36.0); Mean Corpuscular Hemoglobin 29.9 pg (27.0-33.0); Mean Corpuscular Volume 88.4 fl (81.6-98.3); Mean Platelet Volume 12.3 fl (7.4-10.4); Platelet Count 182 10x3/uL (150-450); RBC Distribution Width 13.5 % (11.5-14.5); Red Blood Cell (RBC) Count 4.32 10x6/uL (3.90-5.03); White Blood Cell (WBC) Count 9.6 10x3/uL (3.5-10.5)
[2022-05-02 05:26] LABS: Anion Gap 13 mmol/L (10-20); BUN (Urea Nitrogen) 32 mg/dL (9.8-20.1); Calc. Creatinine Clearance 64 mL/min (70-130); Calcium 8.8 mg/dL (7.8-10.44); Carbon Dioxide 30 mmol/L (23-31); Chloride 100 mmol/L (98-107); Estimated GFR 68; Glucose 163 mg/dL (83-110); Sodium 139 mmol/L (136-145)
[2022-05-02] MEDS: Pantoprazole 40 MG VIAL IVP SCH ×2 (08:54→22:03)
[2022-05-02] MEDS: PARoxetine 20 MG TAB PO SCH (08:55)
[2022-05-02] MEDS: Carvedilol 6.25 MG TAB PO SCH ×2 (08:55→16:23)
[2022-05-02] MEDS: Zinc Sulfate 220 MG CAP PO SCH (08:55)
[2022-05-02] MEDS: levETIRAcetam 500 MG TAB PO SCH ×2 (08:55→22:03)
[2022-05-02] MEDS: Ascorbic Acid 500 mg Chewable Tablet PO SCH (08:56)
[2022-05-02] MEDS: Atorvastatin Calcium 20 MG TAB PO SCH (08:56)
[2022-05-02] MEDS: Lantus 1000 UNITS/10 ML VIAL SC SCH (08:56)
[2022-05-02] MEDS: Furosemide 40 MG TAB PO SCH (08:56)
[2022-05-02] MEDS ORDERED: Losartan 25 MG TAB PO SCH (09:00)
[2022-05-02 09:53] LABS: Hemoglobin 13.1 g/dL (12.0-15.5)
[2022-05-02] MEDS ORDERED: PAXLOVID PO SCH (21:00)
[2022-05-02] MEDS: Pramipexole Di-HCl 1 MG TAB PO SCH (22:03)
[2022-05-02] MEDS: Hydrocortisone Acetate 25 MG Suppository PR SCH (22:04)
[2022-05-03] MEDS: Lantus 1000 UNITS/10 ML VIAL SC SCH ×3 (03:48→21:56)
[2022-05-03 05:00] LABS: Anion Gap 12 mmol/L (10-20); BUN (Urea Nitrogen) 38 mg/dL (9.8-20.1); Calc. Creatinine Clearance 52 mL/min (70-130); Calcium 8.8 mg/dL (7.8-10.44); Carbon Dioxide 29 mmol/L (23-31); Chloride 99 mmol/L (98-107); Estimated GFR 53; Glucose 197 mg/dL (83-110); Potassium 3.6 mmol/L (3.5-5.1); Sodium 136 mmol/L (136-145)
[2022-05-03 05:12] LABS: #Basophils 0.1 10x3/uL (0.0-0.2); #Monocytes 0.8 10x3/uL (0.0-1.1); #Neutrophils 5.7 10x3/uL (1.5-8.4); %Basophils 0.6 % (0.0-2.0); %Eosinophils 20.5 % (0.0-6.0); %Lymphocytes 11.6 % (18.0-47.0); %Monocytes 8.5 % (0.0-10.0); %Neutrophils 58.5 % (40.0-75.0); Hemoglobin 12.7 g/dL (12.0-15.5); Mean Corpuscular HGB CONC 33.4 g/dL (32.0-36.0); Mean Corpuscular Volume 89.6 fl (81.6-98.3); Mean Platelet Volume 12.3 fl (7.4-10.4); Platelet Count 167 10x3/uL (150-450); RBC Distribution Width 13.7 % (11.5-14.5); Red Blood Cell (RBC) Count 4.24 10x6/uL (3.90-5.03); White Blood Cell (WBC) Count 9.7 10x3/uL (3.5-10.5)
[2022-05-03] MEDS: HumaLOG 300 UNITS/3 ML VIAL SC PRN ×4 (06:49→21:56)
[2022-05-03] MEDS ORDERED: Losartan 25 MG TAB PO SCH (09:00)
[2022-05-03] MEDS: Carvedilol 6.25 MG TAB PO SCH ×2 (09:10→15:52)
[2022-05-03] MEDS: Pantoprazole 40 MG VIAL IVP SCH ×2 (09:11→21:59)
[2022-05-03] MEDS: Furosemide 40 MG TAB PO SCH (09:12)
[2022-05-03] MEDS: Ascorbic Acid 500 mg Chewable Tablet PO SCH (09:12)
[2022-05-03] MEDS: PARoxetine 20 MG TAB PO SCH (09:12)
[2022-05-03] MEDS: levETIRAcetam 500 MG TAB PO SCH ×2 (09:12→21:58)
[2022-05-03] MEDS: Atorvastatin Calcium 20 MG TAB PO SCH (09:13)
[2022-05-03] MEDS: Zinc Sulfate 220 MG CAP PO SCH (09:14)
[2022-05-03] MEDS ORDERED: Sodium Chloride 0.9% 500 ML IV SCH ×2 (16:45→19:30)
[2022-05-03] MEDS: Pramipexole Di-HCl 1 MG TAB PO SCH (21:58)
[2022-05-03] MEDS: Hydrocortisone Acetate 25 MG Suppository PR SCH (21:59)
[2022-05-04 04:57] LABS: Hemoglobin 12.6 g/dL (12.0-15.5); Mean Corpuscular HGB CONC 33.4 g/dL (32.0-36.0); Mean Corpuscular Hemoglobin 29.6 pg (27.0-33.0); Mean Corpuscular Volume 88.7 fl (81.6-98.3); Mean Platelet Volume 12.3 fl (7.4-10.4); Platelet Count 161 10x3/uL (150-450); RBC Distribution Width 13.5 % (11.5-14.5); Red Blood Cell (RBC) Count 4.25 10x6/uL (3.90-5.03); White Blood Cell (WBC) Count 8.7 10x3/uL (3.5-10.5)
[2022-05-04 05:05] LABS: Anion Gap 11 mmol/L (10-20); BUN (Urea Nitrogen) 35 mg/dL (9.8-20.1); Calc. Creatinine Clearance 57 mL/min (70-130); Calcium 8.7 mg/dL (7.8-10.44); Carbon Dioxide 29 mmol/L (23-31); Chloride 105 mmol/L (98-107); Estimated GFR 59; Glucose 116 mg/dL (83-110); Potassium 3.4 mmol/L (3.5-5.1); Sodium 142 mmol/L (136-145)
[2022-05-04 05:22] LABS: MDiff Complete? YES
[2022-05-04 05:25] LABS: Band 4 % (5-11); Eosinophils 26 % (0-10); Lymphocytes 11 % (21-51); Monocytes 8 % (0-10); Neutrophil 48 % (42-75); Reactive Lymphocytes 3 % (0-10)
[2022-05-04 05:26] LABS: Platelet Morphology Comment Appears Adequate; RBC Morphology Normal
[2022-05-04] MEDS: Loperamide HCl 2 MG CAP PO PRN (05:26)
[2022-05-04] MEDS ORDERED: Potassium Chloride 20 MEQ TAB PO SCH (08:00)
[2022-05-04] MEDS: Ascorbic Acid 500 mg Chewable Tablet PO SCH (08:25)
[2022-05-04] MEDS: Atorvastatin Calcium 20 MG TAB PO SCH (08:25)
[2022-05-04] MEDS: levETIRAcetam 500 MG TAB PO SCH ×2 (08:25→22:02)
[2022-05-04] MEDS: Acetaminophen 325 MG TAB PO PRN (08:25)
[2022-05-04] MEDS: Zinc Sulfate 220 MG CAP PO SCH (08:26)
[2022-05-04] MEDS: PARoxetine 20 MG TAB PO SCH (08:26)
[2022-05-04] MEDS: Lantus 1000 UNITS/10 ML VIAL SC SCH ×2 (08:26→22:02)
[2022-05-04] MEDS: Carvedilol 6.25 MG TAB PO SCH ×2 (08:27→17:35)
[2022-05-04] MEDS: Hydrocortisone Acetate 25 MG Suppository PR SCH (22:02)
[2022-05-04] MEDS: Pramipexole Di-HCl 1 MG TAB PO SCH (22:02)
[2022-05-05] MEDS ORDERED: Electrolyte Replacement Protocol 1 EACH FS SCH (08:45)
[2022-05-05] MEDS: Carvedilol 6.25 MG TAB PO SCH ×2 (08:48→17:24)
[2022-05-05] MEDS: Lantus 1000 UNITS/10 ML VIAL SC SCH ×2 (09:45→20:57)
[2022-05-05] MEDS: PARoxetine 20 MG TAB PO SCH (09:45)
[2022-05-05] MEDS: Atorvastatin Calcium 20 MG TAB PO SCH (09:45)
[2022-05-05] MEDS: levETIRAcetam 500 MG TAB PO SCH ×2 (09:45→20:57)
[2022-05-05] MEDS: Zinc Sulfate 220 MG CAP PO SCH (09:45)
[2022-05-05] MEDS: Ascorbic Acid 500 mg Chewable Tablet PO SCH (09:45)
[2022-05-05 09:51] LABS: Magnesium 2.2 mg/dL (1.6-2.6)
[2022-05-05] MEDS ORDERED: Potassium Chloride 20 MEQ TAB PO SCH (10:30)
[2022-05-05] MEDS: HumaLOG 300 UNITS/3 ML VIAL SC PRN (12:33)
[2022-05-05 14:42] LABS: Anion Gap 13 mmol/L (10-20); BUN (Urea Nitrogen) 22 mg/dL (9.8-20.1); Calc. Creatinine Clearance 71 mL/min (70-130); Calcium 9.3 mg/dL (7.8-10.44); Carbon Dioxide 26 mmol/L (23-31); Chloride 106 mmol/L (98-107); Estimated GFR 77; Glucose 120 mg/dL (83-110); Sodium 141 mmol/L (136-145)
[2022-05-05] MEDS: Hydrocortisone Acetate 25 MG Suppository PR SCH (20:57)
[2022-05-05] MEDS: Pramipexole Di-HCl 1 MG TAB PO SCH (20:57)
[2022-05-06 05:50] LABS: #Basophils 0.1 10x3/uL (0.0-0.2); #Eosinphils 2.3 10x3/uL (0.0-0.5); #Neutrophils 4.4 10x3/uL (1.5-8.4); %Basophils 0.9 % (0.0-2.0); %Eosinophils 25.4 % (0.0-6.0); %Lymphocytes 13.8 % (18.0-47.0); %Monocytes 11.4 % (0.0-10.0); %Neutrophils 48.2 % (40.0-75.0); Hemoglobin 12.1 g/dL (12.0-15.5); Mean Corpuscular HGB CONC 33.8 g/dL (32.0-36.0); Mean Corpuscular Volume 88.6 fl (81.6-98.3); Mean Platelet Volume 12.6 fl (7.4-10.4); Platelet Count 147 10x3/uL (150-450); RBC Distribution Width 13.6 % (11.5-14.5); Red Blood Cell (RBC) Count 4.04 10x6/uL (3.90-5.03); White Blood Cell (WBC) Count 9.1 10x3/uL (3.5-10.5)
[2022-05-06 05:52] LABS: ALT (SGPT) 12 U/L (8-55); AST (SGOT) 10 U/L (5-34); Albumin 3.4 g/dL (3.4-4.8); Alkaline Phosphatase 69 U/L (40-110); Anion Gap 11 mmol/L (10-20); BUN (Urea Nitrogen) 20 mg/dL (9.8-20.1); Bilirubin, Total 0.3 mg/dL (0.2-1.2); Calc. Creatinine Clearance 76 mL/min (70-130); Calcium 9.5 mg/dL (7.8-10.44); Carbon Dioxide 26 mmol/L (23-31); Chloride 109 mmol/L (98-107); Estimated GFR 81; Globulin 2.7 g/dL (2.4-3.5); Glucose 102 mg/dL (83-110); Potassium 4.3 mmol/L (3.5-5.1); Protein, Total 6.1 g/dL (5.8-8.1); Sodium 142 mmol/L (136-145)
[2022-05-06 06:39] LABS: Eosinophils 27 % (0-10); Lymphocytes 11 % (21-51); Monocytes 6 % (0-10)
[2022-05-06 06:40] LABS: Neutrophil 56 % (42-75)
[2022-05-06 06:41] LABS: Diff Comment (RBC Morph SCRN) NORMAL; Platelet Morphology Comment Appears Decreased
[2022-05-06] MEDS: PARoxetine 20 MG TAB PO SCH (10:05)
[2022-05-06] MEDS: levETIRAcetam 500 MG TAB PO SCH ×2 (10:05→20:18)
[2022-05-06] MEDS: Ascorbic Acid 500 mg Chewable Tablet PO SCH (10:05)
[2022-05-06] MEDS: Zinc Sulfate 220 MG CAP PO SCH (10:06)
[2022-05-06] MEDS: Carvedilol 6.25 MG TAB PO SCH (10:06)
[2022-05-06] MEDS: Lantus 1000 UNITS/10 ML VIAL SC SCH ×2 (10:06→20:18)
[2022-05-06] MEDS: Atorvastatin Calcium 20 MG TAB PO SCH (10:06)
[2022-05-06] MEDS: HumaLOG 300 UNITS/3 ML VIAL SC PRN ×2 (16:54→20:42)
[2022-05-06] MEDS: Carvedilol 3.125 MG TAB PO SCH (16:54)
[2022-05-06] MEDS: Hydrocortisone Acetate 25 MG Suppository PR SCH (20:17)
[2022-05-06] MEDS: Pramipexole Di-HCl 1 MG TAB PO SCH (20:18)
[2022-05-06] MEDS: Acetaminophen 325 MG TAB PO PRN (20:22)
[2022-05-07 03:39] LABS: #Basophils 0.1 10x3/uL (0.0-0.2); #Eosinphils 1.7 10x3/uL (0.0-0.5); #Monocytes 1.4 10x3/uL (0.0-1.1); #Neutrophils 5.8 10x3/uL (1.5-8.4); %Basophils 0.8 % (0.0-2.0); %Eosinophils 17.1 % (0.0-6.0); %Lymphocytes 10.4 % (18.0-47.0); %Monocytes 13.9 % (0.0-10.0); %Neutrophils 57.3 % (40.0-75.0); Hemoglobin 11.8 g/dL (12.0-15.5); Mean Corpuscular HGB CONC 33.4 g/dL (32.0-36.0); Mean Corpuscular Hemoglobin 29.9 pg (27.0-33.0); Mean Corpuscular Volume 89.4 fl (81.6-98.3); Platelet Count 142 10x3/uL (150-450); RBC Distribution Width 13.7 % (11.5-14.5); Red Blood Cell (RBC) Count 3.95 10x6/uL (3.90-5.03); White Blood Cell (WBC) Count 10.1 10x3/uL (3.5-10.5)
[2022-05-07 03:51] LABS: Anion Gap 15 mmol/L (10-20); BUN (Urea Nitrogen) 25 mg/dL (9.8-20.1); Calc. Creatinine Clearance 68 mL/min (70-130); Calcium 9.1 mg/dL (7.8-10.44); Carbon Dioxide 25 mmol/L (23-31); Chloride 105 mmol/L (98-107); Estimated GFR 71; Glucose 146 mg/dL (83-110); Potassium 4.7 mmol/L (3.5-5.1); Sodium 140 mmol/L (136-145)
[2022-05-07 06:12] LABS: Norovirus GI Negative (Negative); Norovirus GII Negative (Negative)
[2022-05-07] MEDS: Lantus 1000 UNITS/10 ML VIAL SC SCH (10:25)
[2022-05-07] MEDS: Atorvastatin Calcium 20 MG TAB PO SCH (10:26)
[2022-05-07] MEDS: levETIRAcetam 500 MG TAB PO SCH (10:26)
[2022-05-07] MEDS: Zinc Sulfate 220 MG CAP PO SCH (10:26)
[2022-05-07] MEDS: Ascorbic Acid 500 mg Chewable Tablet PO SCH (10:26)
[2022-05-07] MEDS: PARoxetine 20 MG TAB PO SCH (10:26)
[2022-05-07] MEDS: Carvedilol 3.125 MG TAB PO SCH ×2 (10:26→17:55)
[2022-05-07 12:08] VITALS: TEMP 98
[2022-05-07 15:36] VITALS: BP 124/56
== END 2022-05-07 18:23 | disposition home or self-care (01) | DRG 313 ==
LOC: CSHERS 07:19 → CSHERHOLD 12:17 → INTOOBSV 12:17 → CSHTELE 16:17 → OBSVTOIN 05-03 14:31
PROVIDERS: ADMIT Family Medicine; ATTEND Hospitalist
DX: R07.9 Chest pain, unspecified (principal); U07.1 COVID-19; I62.03 Nontraumatic chronic subdural hemorrhage; J12.82 Pneumonia due to coronavirus disease 2019; N30.00 Acute cystitis without hematuria; I13.0 Hypertensive heart and chronic kidney disease with heart failure and stage 1 through stage 4 chronic kidney disease, or unspecified chronic kidney disease; I50.32 Chronic diastolic (congestive) heart failure; K62.5 Hemorrhage of anus and rectum; I95.1 Orthostatic hypotension; N18.2 Chronic kidney disease, stage 2 (mild); E11.22 Type 2 diabetes mellitus with diabetic chronic kidney disease; E78.5 Hyperlipidemia, unspecified; I25.10 Atherosclerotic heart disease of native coronary artery without angina pectoris; R77.8 Other specified abnormalities of plasma proteins; F32.A Depression, unspecified; F41.9 Anxiety disorder, unspecified; E11.51 Type 2 diabetes mellitus with diabetic peripheral angiopathy without gangrene; R53.1 Weakness; G40.909 Epilepsy, unspecified, not intractable, without status epilepticus; R19.7 Diarrhea, unspecified; K64.9 Unspecified hemorrhoids; Z91.81 History of falling; Z79.899 Other long term (current) drug therapy; Z79.4 Long term (current) use of insulin; Z90.49 Acquired absence of other specified parts of digestive tract; Z98.2 Presence of cerebrospinal fluid drainage device; Z95.5 Presence of coronary angioplasty implant and graft; Z98.890 Other specified postprocedural states
CPT/HCPCS: 36415; 36416; 70450; 71045; 74177; 80048; 80053; 81003; 81015; 82274; 82553; 83630; 83690; 83735; 84484; 85025; 87015; 87206; 87324; 87449; 87798; 93005; 93306; 94760; 96374; 96376; C9113; G0378; J1815; J7030; Q9967